=== PATIENT | male | born 1980 | race Caucasian/White ===

== ENCOUNTER 2017-10-01 13:41 | Emergency (ER) | payer OTHER ==
[~2017-10-01] VITALS: Ht 175.3 cm; Wt 66.7 kg
[~2017-10-01 13:41] MED LIST: ALEVE220 M1 PO; IBUPROFEN600 MG PO; NORCO 5-325 TA1 EACH PO
[2017-10-01] MEDS ORDERED: SERTRALINE HCL100 MG PO (13:54)
[2017-10-01] MEDS ORDERED: GABAPENTIN300 MG PO (13:54)
[2017-10-01] MEDS ORDERED: PREDNISONE20 MG PO (14:17)
== END 2017-10-01 14:31 | disposition home or self-care (01) ==
LOC: ED 13:41
DX: M79.641 Pain in right hand (principal); M79.642 Pain in left hand; Z87.891 Personal history of nicotine dependence; Z88.1 Allergy status to other antibiotic agents; Z79.899 Other long term (current) drug therapy
CPT/HCPCS: 99283; J7512

== ENCOUNTER 2019-06-29 12:39 | Emergency (ER) | payer OTHER ==
[~2019-06-29] VITALS: Ht 175.3 cm; Wt 66.7 kg
[~2019-06-29 12:39] MED LIST changes: +GABAPENTIN300 MG PO; +PREDNISONE20 MG PO; +SERTRALINE HCL100 MG PO
[2019-06-29] MEDS ORDERED: PREDNISONE20 MG PO (13:39)
[2019-06-29] MEDS ORDERED: CYCLOBENZAPRINE10 MG PO (13:39)
== END 2019-06-29 13:45 | disposition home or self-care (01) ==
LOC: ED 12:39
DX: M54.41 Lumbago with sciatica, right side (principal); F17.200 Nicotine dependence, unspecified, uncomplicated; Z88.1 Allergy status to other antibiotic agents; Z79.52 Long term (current) use of systemic steroids; Z79.899 Other long term (current) drug therapy
CPT/HCPCS: 99283

== ENCOUNTER 2020-08-06 13:24 | Emergency (ER) | payer OTHER ==
[~2020-08-06] VITALS: Ht 175.3 cm; Wt 65.8 kg
[~2020-08-06 13:24] MED LIST changes: +CYCLOBENZAPRINE10 MG PO
== END 2020-08-06 15:13 | disposition home or self-care (01) ==
LOC: ED 13:24
DX: S22.32XA Fracture of one rib, left side, initial encounter for closed fracture (principal); V23.4XXA Motorcycle driver injured in collision with car, pick-up truck or van in traffic accident, initial encounter; F17.200 Nicotine dependence, unspecified, uncomplicated; Z88.1 Allergy status to other antibiotic agents
CPT/HCPCS: 71260; 74177; 80053; 85025; 90471; 99284-25; J7040; Q9967